=== PATIENT | male | born 2000 | race Two or more races ===

== ENCOUNTER 2024-12-22 16:45 | Emergency (ER) | payer MEDICAID, SELFPAY ==
[2024-12-22 17:25] VITALS: BP 131/74; PULSE 90; RESP 20; TEMP 37.1; O2SAT 98
--- NOTE | 2024-12-22 17:41 | XR_ITS ---
EXAMINATION: Left elbow 2 views TECHNIQUE: AP lateral left elbow 2 views Date and time: December 22, 2024, 1748 hours INDICATIONS: Patient fell today with into the elbow, elbow pain. FINDINGS: Acute nondisplaced fracture radial head Large elbow effusion No dislocation IMPRESSION: Acute fracture radial head
--- NOTE | 2024-12-22 19:14 | EDNOTE_ITS ---
Upper Extremity Injury RME/HPI General Chief Complaint: Extremity Injury, Upper Stated Complaint: LEFT ELBOW INJURY Time Seen by Provider: 12/22/24 16:57 Arrival date/time: 12/22/24 16:45 This is a case of 24-year-old male with no medical history came in in the emergency room due to left elbow injury history of present illness started 1 hour prior to arrival in the emergency room when the patient fell on a 2 feet ladder landed on his left shoulder patient sustained pain and swelling denies any head neck chest or abdominal injury no loss of consciousness Limitations: no limitations Related Data Previous Rx's ?Medication ?Instructions ?Recorded hydrocodone 5 mg-acetaminophen 325 1 tab PO Q6H PRN pa in #12 tabs 12/22/24 mg tablet Allergies Allergy/AdvReac Type Severity Reaction Status Date / Time No Known Allergies Allergy Verified 12/22/24 16:47 Review of Systems Review of Systems Systems Reviewed: All systems reviewed, normal except as documented Past Medical History Past Medical History NEUROLOGIC: Negative Neurological Disorders or Seizures CARDIAC: Negative Cardiac Disorders or Congestive Heart Failure RESPIRATORY: Negative Chronic Obstructive Pulmonary Disease (COPD) GASTROINTESTINAL: Negative Gastrointestinal Disorders GENITOURINARY: Negative Genitourinary Disorders or Renal Disease MUSCULOSKELETAL: Positive Musculoskeletal Disorders (LEFT WRIST FX 2020) ENDOCRINE: Negative Endocrine Disorders, Diabetes Mellitus Type 1 or Diabetes Mellitus Type 2 HEMATOLOGIC: Negative Blood Disorders or Anemia OTHER HISTORY: Negative Autoimmune Disease, Blood Transfusions, Blood Transfusion Reaction, Anesthesia Reactions or Chicken Pox Surgical History SURGICAL: Positive Open Reduction Internal Fixation (LEFT WRIST) Social History SMOKING STATUS: Never smoker ED Exam General Limitations: Present no limitations General appearance: Present alert, in no apparent distress and other (Physical examination patient is awake alert oriented not in distress nontoxic looking well-hydrated well-nourished) Head Head exam: Present atraumatic, normocephalic and normal inspection Eye Eye exam: Present normal appearance, PERRL and EOMI ENT ENT exam: Present normal exam, normal oropharynx and mucous membranes moist Neck Neck exam: Present normal inspection, full ROM and trachea midline; Absent ten derness, meningismus, lymphadenopathy or thyromegaly Chest Chest inspection: Present normal inspection and symmetric chest wall rise; Absent tenderness Respiratory Respiratory exam: Present normal lung sounds bilaterally; Absent respiratory distress, wheezes, stridor, accessory muscle use or prolonged expiratory phase Cardiovascular Cardiovascular exam: Present regular rate, normal rhythm and normal heart sounds; Absent bradycardia, tachycardia, irregular rhythm, systolic murmur or diastolic murmur Abdominal Exam Abdominal exam: Present soft and normal bowel sounds; Absent distention, tenderness, guarding, rebound, rigidity, diminished bowel sounds, hyperactive bowel sounds, hypoactive bowel sounds or organomegaly Extremities Exam Extremities exam: Present normal inspection and full ROM Expanded Upper Extremity Exam Shoulder exam: Present normal inspection and full ROM; Absent tenderness or sw elling Arm exam: Present normal inspection and full ROM; Absent tenderness or swelling Elbow exam: Present tenderness, swelling and other (ROM limited pulses were full and equal capillary refill less than 2 seconds sensory intact moderate tenderness around the left elbow with mild to moderate swelling no crepitation no deformity); Absent abrasion, laceration, ecchymosis, deformity, crepitus, dislocation, erythema, effusion, pain w/ pronation/supination or tenderness over radial head Forearm/Wrist exam: Present normal inspection and full ROM; Absent tenderness or swelling Hand exam: Present normal inspection and full ROM; Absent tenderness or swelling Back Exam Back exam: Present normal inspection and full ROM Neurological Exam Neurological exam: Present alert, oriented X3, CN II-XII intact and normal gait; Absent motor sensory deficit Psychiatric Psychiatric exam: Present normal affect and normal mood Skin Skin exam: Present warm, dry, intact and normal color Course Quality Measures none Orders Category Date Time Status XR elbow LT 2V Stat Exams 12/22/24 17:41 Completed HYDROcodone*/APAP 5/325 [[place] 5/325] Med 12/22/24 17:41 Discontinued 1 tab PO X1 ONE Ketorolac Inj [Toradol Inj] Med 12/22/24 17:41 Discontinued 30 mg IM X1 ONE Vital Signs Vital signs: Vital Signs Temperature 98.7 F 12/22/24 17:25 Pulse Rate 90 12/22/24 17:25 Respiratory Rate 20 12/22/24 17:25 Blood Pressure 131/74 H 12/22/24 17:25 Pulse Oximetry (%) 98 12/22/24 17:25 Oxygen Delivery Method Room Air 12/22/24 17:25 Oxygen saturation is 98% in room air Extremity Injury MDM Narrative MDM Narrative:: This is a case of 24-year-old male with no medical history came in in the emergency room due to left elbow injury history of present illness started 1 hour prior to arrival in the emergency room when the patient fell on a 2 feet ladder landed on his left shoulder patient sustained pain and swelling denies any head neck chest or abdominal injury no loss of consciousness patient is awake alert oriented not in distress nontoxic looking well-hydrated well- nourished noted a moderate tenderness and swelling on the left elbow with no crepitation no deformity no cellulitis no redness ROM is very limited due to pain pulses were full and equal capillary refill less than 2 seconds sensory intact shoulder exam wrist exam hand exam were all normal x-ray showed a radial head fracture of the left elbow sugar-tong splint was applied by me patient tolerated well neurovascular intact RICE treatment will continue with the patient at home patient was given Toradol and [place] here in the emergency room which improved and resolve the pain patient was prescribed with tramadol as needed for pain patient will follow-up with PCP in 2 days for reevaluation and to be referred to orthopedic surgeon for further evaluation and treatment of left elbow fracture for any worsening symptoms or any emergent concern return precaution in the ER was advised Patient was discharged with comfortable condition walking with stable gait. Patient verbalized no further complains explained diagnosis and answered patient question. Patient is comfortable with the proposed management plan including the need to follow up with his/her primary care physician and any specialist if applicable Discussed patient for any urgent condition or worsening sx, He/She needed to go to emergency room immediately or call 911. Patient acknowledge the responsibility to follow up as instructed and to monitor her/his symptoms. For any persistence of the symptoms for more than 3-5 days return precaution advised. Discussed the result of the test and was given printed discharge instruction Patient data External records reviewed:: [facility] previous records Clinical information provided by:: patient Social determinants that could affect healthcare access:: none Patient has the following chronic illnesses:: None How is presenting disease/condition affected by chronic disease/condition?: no chronic disease Evaluation data The following diagnostics were reviewed and interpreted by me:: radiology exam(s) Lab and/or radiology exams considered but not ordered:: Reviewed Interpretation Summary: Reviewed Medications / Prescriptions Medications or Prescriptions considered but not ordered:: Given Medication administrations:: Medication Administration History Discontinued Medications Hydrocodone Bitart/Acetaminophen (Hydrocodone/Apap 5/325 Tablet) 1 tab PO X1 ONE Stop: 12/22/24 17:42 Ketorolac Tromethamine (Ketorolac Inj 60 Mg/2 Ml Vial) 30 mg IM X1 ONE Stop: 12/22/24 17:42 Given Consultations Consultation(s) initiated? (list below): No Diagnosis Upper Extremity Injury Differential Diagnosis: Colles' fracture and fracture of humerus Most likely diagnosis given after review of the tests above:: Radial head fracture of the left elbow Admission Indicated Admission indicated?: not indicated Explain why admission is indicated or not indicated:: Not indicated Admission Request Was there a request for admission?: No Admission Attestation Admission request attestation: Not indicated Disposition Plan Disposition Plan: Discharge Discharge Attestation Discharge Attestation: The patient and all family members were given an opportunity to ask questions and understood the discharge instructions. Discharge instructions specifically effects, indications for sooner follow up or return to the emergency department, and the expected course of current diagnosis. Patient condition: Stable Discharge Plan Plan Patient Disposition: HOME (Self Care) Patient condition on transfer: Stable Prescriptions/Referrals Prescriptions/Med Rec: New hydrocodone-acetaminophen 5-325 mg tablet 1 tab PO Q6H MDD max 4 tabs per day PRN (Reason: pain) Qty: 12 0RF Referrals: No Primary/Family,Physician [Primary Care Provider] - In 1 week Problem List Clinical Impression: Closed fracture of radial head Patient/Caregiver Discharge Instructions Education Materials: ED Elbow Fracture, ED Radial Head Fracture, ED Shoulder Immobilizer, ED Splint Care, Plaster, ED RICE Additional Instructions: Follow-up with your primary care physician in 2 days for reevaluation and to be referred to orthopedic surgeon for further evaluation and treatment of left radial head fracture worsening symptoms or any emergent concerns such as swelling numbness weakness tingling sensation call 911 or go to the nearest emergency room take your medication as directed ice pack every 2 hours for 20 minutes for 24 hours then alternate with warm compress elevate to decrease swelling keep the splint sling in place until cleared by your primary care physician Print Language: Citizen Of [place] Stand Alone Forms: Melody Award Info., Patient Portal Info Letter PA/TONY Supervising Physician GABRIELA/TONY Supervising Physician: Dr. Herrera
[2024-12-22] MEDS: HYDROcodone/APAP 5/325 TABLET 1 TAB PO (19:49)
[2024-12-22] MEDS: KETOROLAC INJ 60 MG/2 ML VIAL 30 MG IM (19:50)
== END 2024-12-22 20:09 | disposition home or self-care (01) ==
PROVIDERS: Emergency Provider Emergency Medicine
DX: S52.122D Displaced fracture of head of left radius, subsequent encounter for closed fracture with routine healing (principal); W19.XXXA Unspecified fall, initial encounter
CPT/HCPCS: 29105; 73070; 96372; 99283; J1885; A9270